=== PATIENT | male | born 1965 | race Caucasian/White ===

== ENCOUNTER 2022-07-28 18:29 | Emergency (ER) | payer MEDICAID ==
[~2022-07-28] VITALS: Ht 172.7 cm; Wt 75.0 kg
[~2022-07-28 18:29] MED LIST: IBUP-1986 PO
[2022-07-28 18:53] VITALS: BP 132/78
== END 2022-07-28 22:21 | disposition left against medical advice (07) ==
LOC: ER 18:31
DX: R51.9 Headache, unspecified (principal); Z53.21 Procedure and treatment not carried out due to patient leaving prior to being seen by health care provider
CPT/HCPCS: 99281